=== PATIENT | female | born 1950 | race Caucasian/White ===

== ENCOUNTER 2025-02-21 21:09 | Observation (INO) | payer MEDICARE, SELFPAY ==
[2025-02-21 18:26] VITALS: BP 123/65
[2025-02-21 18:35] LABS: Glucose - Point of Care 103 mg/dl (70-99)
[2025-02-21 18:41] VITALS: BP 134/61
[2025-02-21 18:45] VITALS: BMI 20.1
--- NOTE | 2025-02-21 18:53 | ED.CVA ---
History of Present Illness
General
Chief Complaint: CVA/TIA Symptoms
Source: patient and family
Time Seen by Provider: 02/21/25 18:51
Onset of Stroke Symptoms
Onset of symptoms known: Yes
Date of onset of symptoms: 02/21/25
Time of onset of symptoms: 04:30
History of Present Illness
History of Present Illness:
This patient is a 74-year-old female who was noted today to have what she describes as confusion that began at 4:30 PM. She was actually at her doctor's office, and got confused when she had to report her dress. Her noticed that she seemed
to have difficulty understanding concepts, for example they were describing that she needed to make an appointment and she thought she needed to cancel an appointment. On her way home, in the car, he noted that she had difficulty saying what she
wanted to say. They were trying to decide what they wanted for dinner and she could not form complete sentences with her thoughts. Her speech was not slurred. She was not noted to have facial droop, weakness, or other gross abnormalities. Here
in the ER, family states that her speech is now back to baseline. Of note, patient has a history of bladder cancer with mets to her neck and groin. She just finished 10 days of radiation to the area of the neck with reduction in tumor burden.
They do not recall the last time her brain was imaged. Patient has had similar symptoms of confusion in the past related to a UTI. No fever or chills noted.
Past History
Past History
ED Past Medical History: Other (Bladder CA with mets)
ED Past Surgical History: Urological
Social History
Tobacco: Non-smoker
Alcohol: None
Drug: None
Personal:
Living: with family
Phy Exam
Physical Exam
Physical Exam:
GENERAL: Alert , in no apparent distress
EYE: pupils equal and reactive, EOMI, no nystagmus
NECK: Supple, no significant adenopathy.
ENT: o/p clr, mmm.
CARDIAC: Regular rate and rhythm .
LUNGS: Clear breath sounds bilaterally, no acute respiratory distress, no wheezes/rales/rhonchi
ABDOMEN: Soft, without focal tenderness, no r/g, no cvat
NEUROLOGICAL: Alert and oriented, no aphasia noted, [id number] normal, sensory intact to light touch, motor intact throughout. Cranial nerves II through XII intact with the exception of a homonymous hemianopsia left medial.
SKIN: Warm and dry, skin intact.
MUSCULOSKELETAL: No edema, well perfused.
PSYCH: Normal and appropriate interaction.
Scores
NIH Stroke Score
Level of Consciousness: 0 - Alert
LOC Questions: 0-Answers both correctly
LOC Commands: 0-Performs both correctly
Best Horizontal Gaze: 0-Normal
Visual Antony: 1=Partial hemianopia
Facial Palsy: 0=Normal, symmetrical
Motor - Right Arm: 0=No drift 10 seconds
Motor - Left Arm: 0=No drift 10 seconds
Motor - Right Le-No drift 5 seconds
Motor - Left Le-No drift 5 seconds
Limb Ataxia: 0-Absent
Sensation: 0-Normal
Best Language: 0-No aphasia
Dysarthria: 0-Normal
Extinction and Inattention: 0-No abnormality
NIH Total Score:: 1
Course
Orders/Labs/Results
Orders:
Orders
02/21/25 18:43
CT BRAIN PERF STROKE ALERT Urgent
Comment:
Reason For Exam: expressive aphasia 1630
CT HEAD STROKE ALERT W/o Cont Urgent
Comment:
Reason For Exam: expressive aphasia starting at 430pm
CT HEAD/NECK ANG STROKE ALERT Urgent
Comment:
Reason For Exam: expressive aphasia starting at 430pm
02/21/25 19:06
Basic Metabolic Panel Urgent
Complete Blood Count/With Diff Urgent
Prothrombin Time Urgent
02/21/25 19:55
Urinalysis Reflex To Culture Urgent
Date Specimen was Collected: 02/21/25
Time Specimen was Collected: 20:00
Comment: from nephrostomy
Urine Culture Reflexed from UA [Urinalysis Reflex To Culture] Urgent
Date Specimen was Collected: 02/21/25
Time Specimen was Collected: 19:52
Urine Microscopic Reflex Cult Urgent
Urine Microscopic Urgent
Date Specimen was Collected: 02/21/25
Time Specimen was Collected: 20:00
Urine Culture Urgent
ONEIL Source: U
Specimen Description:
Date Specimen was Collected: 02/21/25
Time Specimen was Collected: 19:52
Urine Culture Urgent
ONEIL Source: U
Specimen Description:
Date Specimen was Collected: 02/21/25
Time Specimen was Collected: 20:00
Comment: NEPHROSTOMY
02/21/25 20:06
Electrocardiogram (*1) Urgent
Reason for Study: Other
Other Reason for Exam: confusion
EKG- Treatment ONCE
Abnormal Lab Results
02/21/25 02/21/25 02/21/25
18:33 19:06 19:55
WBC 12.1 H 10^3/uL
(4.8-10.8)
RBC 2.69 L 10^6/uL
(4.20-5.40)
Hgb 9.2 L g/dL
(12.0-16.0)
Hct 27.8 L %
(37.0-47.0)
MCV 103.3 H fL
(81.0-99.0)
MCH 34.2 H pg
(27.0-31.0)
RDW 19.9 H %
(11.5-14.5)
Abs Immat Gran (auto) 0.3 H 10^3/uL
(0-0.05)
Absolute Neuts (auto) 10.3 H 10^3/uL
(1.4-6.5)
Absolute Lymphs (auto) 0.9 L 10^3/uL
(1.2-3.4)
Immature Gran % 2.5 H %
(0-0.5)
Neutrophils % 84.6 H %
(42.2-75.2)
Lymphocytes % 7.0 L %
(20.5-51.1)
Sodium 128 L mmol/L
(135-145)
BUN 20 H mg/dl
(7-17)
Glucose 109 H mg/dl
(70-99)
Ur Occult Blood Reflex 4+ A
(Negative)
Leukocyte Esterase Rfl
Urine RBC
Urine WBC
Urine WBC (Reflex)
Urine Bacteria
Urine Albumin (Reflex)
POC Glucose 103 H mg/dl
(70-99)
02/21/25 02/21/25 02/21/25
19:55 19:55 19:55
WBC
RBC
Hgb
Hct
MCV
MCH
RDW
Abs Immat Gran (auto)
Absolute Neuts (auto)
Absolute Lymphs (auto)
Immature Gran %
Neutrophils %
Lymphocytes %
Sodium
BUN
Glucose
Ur Occult Blood Reflex 4+ A
(Negative)
Leukocyte Esterase Rfl 3+ A 3+ A
(Negative) (Negative)
Urine RBC >100 A /HPF
(0-2)
Urine WBC >100 A /HPF
(0-5)
Urine WBC (Reflex) >100 A /HPF
(0-5)
Urine Bacteria Many A
(Negative)
Urine Albumin (Reflex) 3+ A 3+ A
(Neg - Trace) (Neg - Trace)
POC Glucose
02/21/25 19:06
02/21/25 19:06
Vital Signs
Initial and Last Documented VS:
Initial Vital Signs
Temp Pulse Resp BP Pulse Ox
98.1 F 97 18 123/65 97
02/21/25 18:26 02/21/25 18:26 02/21/25 18:26 02/21/25 18:26 02/21/25 18:26
Last Documented Vital Signs
Temp Pulse Resp BP Pulse Ox
98.1 F 97 18 123/65 97
02/21/25 18:26 02/21/25 18:26 02/21/25 18:26 02/21/25 18:26 02/21/25 18:56
*Pulse Oximetry
SaO2: 97
Oxygen Mode of Delivery: Room air
Patient hypoxic: no
*Critical Care Note
Total Time (30-74mins, 75-104mins- exclusive of procedures): 32
Update Note
Update Note:
Patient presents to the Emergency Department with ____confusion, expressive aphasia
Number and Complexity of Problems Addressed at the Encounter
� Chronic conditions affecting care:
� Acute Exacerbation and/or Progression of Chronic Illness:
� Differential Diagnosis includes: But not limited to brain mets, TIA/CVA, infection, electrolyte disorder, etc. etc.
Amount and/or Complexity of Data to be Reviewed and Analyzed
� I performed an independent evaluation of and my interpretation is:
EKG:
CT:CTA Head: No large vessel occlusion. No aneurysm. Moderate atherosclerotic calcifications of the bilateral carotid siphons with resultant multifocal mild stenosis.
CTA Neck: No significant arterial stenosis.
There is heterogeneous thickening and enhancement along the left sternocleidomastoid with numerous adjacent small soft tissue nodules. In the setting of known metastatic cancer this is likely related to metastatic disease.
ctp A CT brain perfusion examination was performed with intravenous contrast. Automatic exposure control radiation dose reduction technology was utilized.
Quantitative and qualitative perfusion maps were produced using RAPID software and are available for review in the [facility] PACS.
CBF <30% Volume: 0 mL (estimate of ischemic core)
Tmax >6 second Volume: 0 mL (critically hypoperfused tissue)
CBF/Tmax Mismatch Volume: 0 mL (ischemic penumbra)
CBF/Tmax Mismatch Ratio: None
Hypoperfusion Index (Tmax >10s/Tmax >6s): N/A (predicts rate of collateral flow, infarct growth, and clinical outcome)
CBV Index (rCBV in Tmax >6s): N/A
Xrays:
Laboratory Studies: Leukocytosis with anemia, no prior for comparison, hyponatremia noted at 128 no prior for comparison mild prerenal azotemia
Other:
� Review of other/old records reveals: Family at my request provided me with prior lab results, on February 06 her white blood cell count was 10.2. Her hemoglobin was 9.2. Her sodium was 134. Therefore, it appears that patient
has new leukocytosis and hyponatremia
� Clinical information was obtained by an independent historian: and daughter who remain at bedside
� Prescriptions/Medications Considered but not given:
� Further testing considered but not performed:
Risk of Complications and/or Morbidity or Mortality of Patient Management
� Social determinants of health affecting care:
� Discussion with other providers (PCP, Hospitalists, Consultants, etc):
� Escalation of care including admission/observation vs risk of discharge considered: Upon presentation to her room, a stroke alert was immediately called. Family and patient were interviewed while we place an IV, placed on the
monitor, and arrange for CT. Patient is currently at CT, family updated regarding criteria for TNK. Given that her speech is so fluid now without obvious facial droop weakness etc., she does not appear to have debilitating symptoms that would make
her eligible for TNK. She will be closely reexamined upon her return from CAT scan.
7:39 PM continued assessment of patient, she remains with a NIH of 1, no expressive aphasia dysarthria etc. She is not a TNK candidate given her low NIH score. It is unclear if her visual findings are new or old. Noncon head CT communicated to me
via [place] text as NAD. Awaiting CTP/CTA report.
Hospitaist aware, family updated...w/u c/w uti and hypoNa.
ED Attending Note
-
Portions of this chart may have been created with voice recognition software.� Occasional wrong word or��sound alike� substitutions may have occurred due to the inherent limitations of voice recognition software.
Discharge Plan
Departure
Patient Disposition: Admit
Date of Disposition: 02/21/25
Time of Disposition: 20:23
Presentation/result/management discussed w/ accepting MD/DO: Hospitalist
Condition: Fair
Discharge Problem:
Acute hyponatremia, Acute UTI
Referrals:
PRIVATE,PHYSICIAN [Family Provider, Internal Medicine]
Interventions
Interventions:
*Risk Screen - Suicide Last Done: 02/21/25 18:26
*General Assessment Last Done: 02/21/25 18:26
*Neglect/Abuse Screening Last Done: 02/21/25 18:26
*ED- Fall Risk Assessment Last Done: 02/21/25 19:21
*ED COVID-19 Vaccine History Last Done: 02/21/25 19:21
ED- Pulmonary Assessment Last Done: 02/21/25 19:21
ED- Neurological Assessment Last Done: 02/21/25 19:21
ED- Cardiac Assessment Last Done: 02/21/25 19:21
Discharge Date and Time
Print Language: CAMEROONIAN
[2025-02-21 19:20] VITALS: BP 114/62
[2025-02-21 19:22] LABS: Hematocrit 27.8 % (37.0-47.0); Hemoglobin 9.2 g/dL (12.0-16.0); Mean Corp Hgb Conc. 33.1 g/dL (33.0-37.0); Mean Corpuscular Volume 103.3 fL (81.0-99.0); Nucleated Red Blood Cells % 0 %; Platelet Count 198 10^3/uL (130-400); Red Cell Dist. Width 19.9 % (11.5-14.5)
[2025-02-21 19:24] LABS: INR 0.94; PT 13.1 Sec (11.4-14.6)
[2025-02-21 19:37] LABS: Blood Urea Nitrogen 20 mg/dl (7-17); Calcium 8.7 mg/dl (8.4-10.2); Carbon Dioxide 24 mmol/L (22-30); Chloride 99 mmol/L (98-107); Estimated Creatinine Clearance 41 ml/min; Glucose 109 mg/dl (70-99); Sodium 128 mmol/L (135-145); eGFR 59.12
[2025-02-21 19:51] LABS: Anisocytosis 1+; Hypochromasia 1+; Normal RBC Morphology No; Ovalocytes FEW; Polychromasia 1+
[2025-02-21 19:52] LABS: Acanthocytes FEW
[2025-02-21 20:09] LABS: Urine Character Cloudy (Clear)
[2025-02-21 20:10] LABS: Urine Character Slightly Cloudy (Clear)
[2025-02-21 20:16] LABS: Urine Squamous Cell 0-2 /LPF (Few)
[2025-02-21 20:17] LABS: Urine White Cell >100 /HPF (0-5)
[2025-02-21 20:19] LABS: Urine Red Blood Cell >100 /HPF (0-2); Urine Squamous Cell 0-2 /LPF (Few); Urine White Cell >100 /HPF (0-5)
--- NOTE | 2025-02-21 21:00 | HPS.HSE ---
Addendum entered and electronically signed by Darrel Chan MD 02/27/25 20:55:
Home meds not available at time of H&P.
Addendum entered and electronically signed by Darrel Chan MD 02/21/25 21:15:
History of chronic neuropathy.
Original Note:
Family Physician
-
Family Physician: Soledad Alejandro
Chief Complaint
-
confusion
History of Present Illness
74-year-old female past medical history of bladder cancer with metastases to neck and groin status post radiation, polymyositis, myocarditis, prior UTIs, presenting with confusion starting at 4:30 PM. She was at her [employer] office for
myocarditis follow-up and got confused and her noticed that she seemed to have difficulty understanding concepts. For example she needed to make an appointment and she thought she needed to cancel an appointment. On her way home in the car
she noticed that she had difficulty saying what she wanted to say. They were trying to decide what they wanted for dinner and she could not form complete sentences with her thoughts. Speech was not slurred. She did not have facial droop, weakness
or other gross abnormalities. No fevers or chills. No urinary symptoms or abdominal pain or nausea or vomiting.
She drinks around 48 ounces of fluids per day. Denies any increase in fluid intake.
Does not smoke. Drinks alcohol occasionally.
Medical History
Past Medical History
Past Medical History: Reports Other (bladder cancer with metastases to neck and groin status post radiation, polymyositis, myocarditis, prior UTIs)
Past Surgical History: Reports None
Social History
Tobacco: Non-smoker
Alcohol: Occasional
Drug: None
Family History
Family History: Not pertinent
Allergies / Home Medications
Allergies reflects when Allergies were last updated in [facility].
Home Medications with original date entered in [facility]
Allergy/Medication List:
Allergies
Allergy/AdvReac Type Severity Reaction Status Date / Time
bee venom protein (honey bee) Allergy Unknown Verified 02/21/25 20:46
Review of Systems
-
History Source: Patient
A 12 point ROS was completed and negative except as noted: Yes
Constitutional: Reports No Symptoms
EENT: Reports No Symptoms
Respiratory: Reports No Symptoms
Cardiac: Reports No Symptoms
Abdomen/GI: Reports No Symptoms
: Reports No Symptoms
Musculoskeletal: Reports No Symptoms
Skin: Reports No Symptoms
Neurological: Reports No Symptoms
Endocrine: Reports No Symptoms
Hematologic/Lymphatic: Reports No Symptoms
Psych: Reports No Symptoms
Physical Exam
Vital Signs
Vital Signs
Temp Pulse Resp BP Pulse Ox
98.1 F 97 18 123/65 97
02/21/25 18:26 02/21/25 18:26 02/21/25 18:26 02/21/25 18:26 02/21/25 18:56
Physical Exam
General: Well Developed, Well Nourished and No Apparent Distress
HEENT: NormoCephalic, Moist mucous membranes and Atraumatic
Respiratory: Clear
Cardiac: S1/S2 and Regular Rhythm; No Murmur or Rub
GI: Soft, Non Tender, Non Distended and Normal Bowel Sounds; No Organomegaly
Rectal: Deferred by Provider
Musculoskeletal: No Clubbing, No Cyanosis and No Edema
Skin: No Rash
Neuro: Nonfocal/grossly intact
Laboratory Results
-
02/21/25 19:06
02/21/25 19:06
Laboratory Results
PT 13.1 Sec (11.4-14.6) 02/21/25 19:06
INR 0.94 02/21/25 19:06
Total Bilirubin Cancelled 02/21/25 19:06
AST Cancelled 02/21/25 19:06
ALT Cancelled 02/21/25 19:06
Alkaline Phosphatase Cancelled 02/21/25 19:06
Data Reviewed
-
Lab Data: Labs Reviewed by me
Old Records: Reviewed
Impression/Plan
-
IMPRESSION:
PLAN:
# Acute metabolic encephalopathy secondary to UTI
-Mental status back to baseline currently
-CT head shows no acute intracranial malady, CTA head and neck shows
- Urinalysis shows greater than 100 WBC, +3 leukocyte esterase
- Urine culture
- Ceftriaxone
- Valium given for anxiety
# Probable chronic hyponatremia secondary to malignancy
- Sodium 128, unknown baseline, doubt responsible for symptoms
- Recheck in the morning
Bladder cancer metastases to neck and groin
-Patient on chemotherapy
- Status post radiation
Presumably chronic anemia
-Hemoglobin 9.2
Polymyositis
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
- Follows with cardiology, had appointment today
DNR/DNI
DVT prophylaxis�heparin
Regular diet
[2025-02-21] MEDS: ROCEPHIN 1000 MG IV (21:07)
[2025-02-21] MEDS: VALIUM INJECTION 2 MG IV (21:12)
[2025-02-22 00:05] VITALS: BP 87/58
[2025-02-22 00:10] VITALS: BMI 19.4
--- NOTE | 2025-02-22 03:22 | PTCARENOTE ---
02/21 2330 pt admitted to [facility]-, t/f from front of [facility] d/t recent chemo/radiation and pt's not happy that pt would be sharing a room. Oriented to room, call edwards, tv. admission assessment completed. Reviewed POC with pat and .
--- NOTE | 2025-02-22 03:25 | PTCARENOTE ---
0115 BARREL PLANER notified of NA level 128, Respiratory Director reviewed labs. No orders at this time
[2025-02-22 08:34] VITALS: BP 94/62
[2025-02-22 08:40] LABS: Hematocrit 24.0 % (37.0-47.0); Hemoglobin 8.1 g/dL (12.0-16.0); Mean Corp Hgb Conc. 33.8 g/dL (33.0-37.0); Mean Corpuscular Volume 101.3 fL (81.0-99.0); Nucleated Red Blood Cells % 0 %; Red Cell Dist. Width 19.7 % (11.5-14.5)
[2025-02-22] MEDS: HEPARIN 5000 UNITS SC ×2 (08:42→22:21)
[2025-02-22] MEDS: TYLENOL 650 MG PO ×2 (08:42→17:25)
[2025-02-22] MEDS: XANAX 0.25 MG PO ×2 (08:43→17:26)
[2025-02-22 09:04] LABS: ALT (SGPT) 12 U/L (0-35); AST (SGOT) 19 U/L (14-36); Albumin 2.8 g/dl (3.5-5.0); Alkaline Phosphatase 71 U/L (38-126); Blood Urea Nitrogen 18 mg/dl (7-17); Calcium 8.4 mg/dl (8.4-10.2); Carbon Dioxide 24 mmol/L (22-30); Chloride 102 mmol/L (98-107); Estimated Creatinine Clearance 36 ml/min; Glucose 84 mg/dl (70-99); Potassium 3.3 mmol/L (3.5-5.1); Sodium 130 mmol/L (135-145); Total Protein 5.3 g/dl (6.3-8.2); eGFR 52.73
[2025-02-22 11:20] LABS: Platelet Count 116 10^3/uL (130-400)
--- NOTE | 2025-02-22 11:26 | CM ---
escrow manager reviewed patient's chart and met with patient and patient states she lives with her spouse at [facility] independent living, patient is independent with adl's and uses a walker with ambulation, patient reports she is current with
[facility] visiting nurses.
PCP: Soledad Alejandro
Pharmacy: [facility]
Plan; [facility] apartments with [facility] visiting nurses
[facility] VN
[phone]
[2025-02-22 11:37] VITALS: BMI 19.4
--- NOTE | 2025-02-22 14:10 | W.PN.HOSP.TC ---
Today's Communication/Plan
-
Continue with empirical antibiotics
Follow urine culture data
Assessment / Plan
Assessment / Plan
Change in mental status with transient confusion and word finding difficulty. Nonfocal neurologically currently. CT of the head and CTA head and neck were negative for any acute findings. She does have positive urinalysis raising concern for UTI
but transient nature makes me think if she had any transient neurological issue.
No traditional risk factors for stroke.
She did receive radiation to the neck with no CT evidence of carotid stenosis.
Patient offered MRI of the brain but she is declining.
Check hemoglobin A1c and lipid panel in AM.
Abnormal urinalysis-patient with left PCN and right ureteral stent. Cannot rule out UTI. Continue with empirical antibiotics pending culture data. White count elevation noted which is normalized now.
Bladder cancer with mets-currently under care at [facility].
# Probable chronic hyponatremia secondary to malignancy
- Sodium 128, unknown baseline, doubt responsible for symptoms
- Recheck shows improvement. Continue with fluid restriction
Presumably chronic anemia
Polymyositis
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
- Follows with cardiology
DNR/DNI
DVT prophylaxis�heparin
Regular diet
Anticipated Discharge: Within 24 hours
Subjective/Interval History
-
Date of Service: February 22, 2025
She had her feels she is back to normal.
Patient denies having any dysuria or frequency of urine. She has a left PCN nephrostomy tube and has right double-J stent. She has known history of bladder cancer. No fever or chills.
She was fine the day before night and also yesterday morning. She went to her doctor's appointment and when she was asked that she could not give her home address correctly but she says they moved into a new home a year ago. She also apparently
was confused about an appointment per . [facility] she could not get her words out but it all quickly resolved.
Denies any prior history of strokes or TIAs.
Patient does remember having trouble with getting the words out yesterday transiently. According to her symptoms resolved before even she was put on antibiotics.
Objective Data
-
Labs:
Laboratory Results
02/22/25
07:37
WBC 6.1
Hgb 8.1 L
Hct 24.0 L
Plt Count 116 L D
Sodium 130 L
Potassium 3.3 L
Chloride 102
Carbon Dioxide 24
BUN 18 H
Creatinine 1.1 H
Glucose 84
Calcium 8.4
Total Bilirubin 0.5
AST 19
ALT 12
Alkaline Phosphatase 71
Vital Signs:
Vital Signs
Temp Pulse Resp BP Pulse Ox
98.6 F 92 20 94/62 98
02/22/25 08:34 02/22/25 08:34 02/22/25 08:34 02/22/25 08:34 02/22/25 08:34
I&O
02/21/25 02/22/25 02/23/25
06:59 06:59 06:59
Intake Total 240 / 240
Output Total 85 / 85
Balance 240 / 240 -85 / -85
Physical Exam
-
General: Comfortable
HEENT: Other (Left side of the neck swollen compared to right)
Respiratory: Non Labored Respirations; Negative Accessory Resp Muscle Use
Cardiac: Regular Rhythm and S1/S2; Negative Murmur
GI: Soft and Nontender
Neuro: AO x 3 and No Motor Deficits; Negative Tremors, Slurred Speech or Facial Droop
Psych: Calm; Negative Confused or Agitated
Data Reviewed
-
Labs: Labs Reviewed by me
--- NOTE | 2025-02-22 16:24 | WOUNDNOTE ---
MID AND LEFT SACRUM 1950, [id number]
--- NOTE | 2025-02-22 16:25 | WOUNDNOTE ---
WOC RN NOTE: Reviewed chart and met with patient. Patient admitted with 2 stage 2 PI to sacrum (medial and left sacrum). The wounds are surrounded by non-blanchable skin, scant serous drainage. Patient reports she has had these wounds for a few
weeks from 'sitting too much.' See worklist for measurements. She also reports a poor appetite and BMI is <20. Will discontinue use of Honey Gel due to bee allergy and use Hydrogel to sacral wounds (at bedside). Static air overlay applied to bed.
Patient can turn self but needs frequent reminders. Heels off-loaded with pillows under calves. Will follow as needed.
[2025-02-22 17:38] VITALS: BP 94/57
[2025-02-22] MEDS: ROCEPHIN 1000 MG IV (22:23)
[2025-02-22] MEDS: STERILE WATER FOR INJECTION 10 ML IV (22:23)
[2025-02-22] MEDS: FLUSH (NSS) 2 FLUSH IV (22:25)
[2025-02-22 23:56] VITALS: BP 126/73
[2025-02-23 07:00] VITALS: BP 116/60
[2025-02-23 08:34] LABS: Hematocrit 22.7 % (37.0-47.0); Hemoglobin 7.8 g/dL (12.0-16.0); Mean Corp Hgb Conc. 34.4 g/dL (33.0-37.0); Mean Corpuscular Volume 103.7 fL (81.0-99.0); Red Cell Dist. Width 19.5 % (11.5-14.5)
[2025-02-23 09:10] LABS: Blood Urea Nitrogen 15 mg/dl (7-17); Calcium 8.2 mg/dl (8.4-10.2); Carbon Dioxide 26 mmol/L (22-30); Chloride 106 mmol/L (98-107); Estimated Creatinine Clearance 36 ml/min; Glucose 75 mg/dl (70-99); HDL Cholesterol 57 mg/dl; LDL Cholesterol, Calculated 91 mg/dl; Potassium 3.2 mmol/L (3.5-5.1); Sodium 136 mmol/L (135-145); Very Low Density Lipoprotein 28 mg/dl (0-30); eGFR 52.73
[2025-02-23] MEDS: HEPARIN 5000 UNITS SC (09:13)
[2025-02-23] MEDS: TYLENOL 650 MG PO ×2 (09:14→13:59)
[2025-02-23 10:47] LABS: Platelet Count 96 10^3/uL (130-400)
--- NOTE | 2025-02-23 11:53 | W.PN.HOSP.TC ---
Today's Communication/Plan
-
Check EKG.
Follow urine culture data
Follow blood counts
Assessment / Plan
Assessment / Plan
Change in mental status with transient confusion and word finding difficulty. Nonfocal neurologically .CT of the head and CTA head and neck were negative for any acute findings. She does have positive urinalysis raising concern for UTI but
transient nature makes me think if she had any transient neurological issue.
No traditional risk factors for stroke.
She did receive radiation to the neck with no CT evidence of carotid stenosis.
Patient offered MRI of the brain but she is declining. Continues to decline MRI brain
Lipid panel noted but without stroke LDL of 91 is adequate goal
Hemoglobin A1c pending
Possible UTI
Abnormal urinalysis-patient with left PCN and right ureteral stent.
Urine culture shows gram-negative bacilli-continue with empirical antibiotics pending culture data. White count elevation noted which is normalized now and in fact on the lower side..
Bladder cancer with mets-currently under care at [facility].
Pancytopenia-patient now with mild pancytopenia. Unclear if infection related. Not neutropenic. Afebrile. Nontoxic. Continue to follow.
# Probable chronic hyponatremia secondary to malignancy
- Sodium 128, unknown baseline, doubt responsible for symptoms
- Recheck shows normalization. Continue with fluid restriction
Presumably chronic anemia
Polymyositis
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
- Follows with cardiology
Tachycardia on clinical assessment-check an EKG
DNR/DNI
DVT prophylaxis�heparin
Regular diet
Patient very keen to go home-explained to her about evaluation of tachycardia, follow-up of labs which she states she will get it with her PCP, and also urine culture data is pending. Advised to stay for further evaluation and treatments.
Anticipated Discharge: Within 24 hours
Subjective/Interval History
-
Date of Service: February 23, 2025
Voicing no specific complaints today. Very keen to go home.
at bedside who does not see any more confusion or word finding difficulty.
Denies any dysuria or frequency of urine. No fever or chills.
Denies any lightheadedness. Denies any shortness of breath or chest pain. Routine vital signs showed elevated heart rate at 124. Denies any prior history of arrhythmias.
Objective Data
-
Labs:
Laboratory Results
02/23/25
07:27
WBC 3.9 L
Hgb 7.8 L
Hct 22.7 L
Plt Count 96 L
Sodium 136
Potassium 3.2 L
Chloride 106
Carbon Dioxide 26
BUN 15
Creatinine 1.1 H
Glucose 75
Calcium 8.2 L
Vital Signs:
Vital Signs
Temp Pulse Resp BP Pulse Ox
98.4 F 124 16 116/60 93
02/23/25 07:00 02/23/25 07:00 02/23/25 07:00 02/23/25 07:00 02/23/25 07:00
I&O
02/22/25 02/23/25 02/24/25
06:59 06:59 06:59
Intake Total 240 / 240 600 / 600
Output Total 460 / 460
Balance 240 / 240 140 / 140
Physical Exam
-
General: Comfortable
Respiratory: Clear to Auscultation and Non Labored Respirations; Negative Accessory Resp Muscle Use
Cardiac: Regular Rhythm, S1/S2 and Tachycardic
GI: Soft, Nontender, Nondistended and Normal Bowel Sounds
Neuro: AO x 3
Psych: Calm
Data Reviewed
-
Labs: Labs Reviewed by me
[2025-02-23 12:12] LABS: Glycohemoglobin (HgbA1c) 4.3 % (4.0-5.6)
[2025-02-23] MEDS: XANAX 0.25 MG PO (13:59)
[2025-02-23 15:00] VITALS: BP 93/50
--- NOTE | 2025-02-23 16:12 | W.PN.UPDATE ---
Update Note
Progress Note Update
Patient made up her mind to go home.
Came up to patient bedside and was present as well at bedside.
Patient says she cannot be in the hospital anymore she is feeling claustrophobic and she feeling anxious. She wants to go home and she will follow-up with her doctors as outpatient.
Patient was told she has UTI meeting criteria with sepsis with tachycardia and depressed white count today. She has bacterial growing both from PCN bag and as well as urine and microbiology do not have final data yet. She was made aware that I do
not know what bacteria it is and what antibiotic to choose from. She was told that sepsis can progress further to septic shock and and she understood the plan as well as the at bedside.
She signed the AMA document. She was encouraged to come back to ER if she were to have fever, lightheadedness, not feeling well, nausea vomiting or any other symptoms.
Cefdinir chosen as empirical abx . advised to touch base with our office tomorrow for final cx report
--- NOTE | 2025-02-23 16:17 | W.DCSUMMARY ---
Discharge Summary
Discharge Data
Date of Admission: 02/21/25
Date of Discharge: 02/23/25
-
Pending Results: Yes (Urine cx pending)
Hospital Course
Primary diagnosis:
Change in mental status
Urinary tract infection
Sinus tachycardia
Left PCN in situ
Right ureteral stent in situ apparently
Bladder cancer with mets currently on treatment at [facility]
Mild pancytopenia
Hyponatremia
Secondary diagnosis:
History of polymyositis
History of myocarditis
Hospital course:
Patient with history of bladder cancer currently treatments. She also has mets from it. She came with change in bowel status which is transient and apparently there was word finding difficulty which was also transient. She was nonfocal
neurologically when she came in. She had a CT of the head and CT of the head and neck which did not show any acute findings. No prior history of strokes. She had a positive urinalysis and raising concern for UTI. With the transient nature of
confusion and a symptom of speech impairment TIA could be a possibility but patient declined MRI. She has no traditional risk factors for stroke. She had no recurrence of symptoms.
urinalysis is strongly positive. She has a left PCN and a right ureteral stent apparently. Gram-negative bacilli was growing out of both the urine specimen but final culture data pending. Initially she had elevated white count which normalized
and then today she had mild pancytopenia including drop in platelets to 96K. No neutropenia. She is apparently known to have anemia her hemoglobin was in sevens today. She is also on a chemo regimen apparently.
She also has a sinus tachycardia with a left bundle branch block. No prior EKGs to compare. Denies any chest pain or shortness of breath. Suspect sinus tachycardia may be related to her current sepsis but also she has a history of myocarditis and
follows with the program research specialist. Apparently program research specialist gave a clean Slate of health from cardiology standpoint last week.
Today she wanted to go home despite incomplete workup and treatments. She signed AMA. She was given empirical cefdinir. Advised her/her to call her office for final urine culture report. She was also advised to come back to ER if she has
ongoing fevers, lightheadedness, nausea vomiting or shortness of breath and chest pain.
Portions of this chart may have been created with voice recognition software. Occasional wrong word or 'sound alike' substitutions may have occurred due to the inherent limitations of voice recognition software.
Discharge Plan
-
Patient Disposition: Against Medical Advice
Discharge Diagnosis/Procedures: UTI, sinus tachycardia, Bladder cancer
Diet: Regular
Activity: As tolerated
Driving Restrictions: Not until seen by your Dr
Bathing Restrictions: None
Blood Work: CBC with differential and BMP on Sunday 02/25 - follow with your PCP
Activity Restrictions/Additional Instructions:
Wound Care Instructions Stage 2 sacral wounds- Clean with soap and water or normal saline and apply small amount of hydrogel. Change Q 48 hours and as needed if soiled.
Follow up at wound care center call for an appointment.
Referrals:
Soledad Alejandro MD [Family Provider, Internal Medicine] - in two days
Prescriptions:
New
cefdinir 300 mg capsule
300 mg PO BID 10 Days Qty: 20 0RF
Discharge Date and Time
Print Language: LEBANESE
--- NOTE | 2025-02-23 16:29 | PTCARENOTE ---
Pt complaining of anxiety. PRN zanex administered. Shortly after administration, pt requested to be discharged. Dr. Hoover made aware- states pt is not medically cleared for d/c at this time. Pt states that she wants to leave hospital anyway. made
aware and saw pt at bedside. Pt signed AMA paper, IV catheter was removed, and pt was wheelchaired to the exit by this RN. picked up pt at entrance and helped pt into car.
== END 2025-02-23 16:15 | disposition left against medical advice (07) ==
LOC: 4 WEST ACU 21:09
PROVIDERS: ADMITTING PHYSICIAN Hospitalist; ATTENDING PHYSICIAN Internal Medicine; EMERGENCY PHYSICIAN Emergency Medicine; FAMILY PHYSICIAN Internal Medicine Geriatric Medicine
DX: N39.0 Urinary tract infection, site not specified (principal); E87.1 Hypo-osmolality and hyponatremia; G93.41 Metabolic encephalopathy; C67.9 Malignant neoplasm of bladder, unspecified; C79.89 Secondary malignant neoplasm of other specified sites; M33.20 Polymyositis, organ involvement unspecified; D61.818 Other pancytopenia; R00.0 Tachycardia, unspecified; Z53.29 Procedure and treatment not carried out because of patient's decision for other reasons; Z66 Do not resuscitate; Z79.899 Other long term (current) drug therapy; Z86.79 Personal history of other diseases of the circulatory system
CPT/HCPCS: 0042T; 70450; 70496; 70498; 80048; 80053; 80061; 81003; 81015; 82962; 83036; 85025; 85027; 85610; 87077; 87086; 87186; 93005; 96374; 96375; 99291; G0378; Q9967